=== PATIENT | female | born 1995 | race Hispanic/Latino ===

== ENCOUNTER 2024-10-05 12:07 | Emergency (ER) | payer MEDICAID ==
[~2024-10-05] VITALS: Ht 167.6 cm; Wt 127.0 kg
[2024-10-05 12:23] VITALS: PULSE 74; RESP 16; TEMP 98
[2024-10-05] MEDS ORDERED: NAPROXEN250 MG PO (13:03)
[2024-10-05] MEDS: KETOROLAC TROMETHAMINE 30 MG/ML VIAL IM STA (13:21)
[2024-10-05] MEDS: ACETAMINOPHEN 325 MG TAB PO ONE (13:22)
[2024-10-05] MEDS: DEXAMETHASONE 4 MG TAB PO STA (13:22)
[2024-10-05] MEDS: LIDOCAINE 4% PATCH TP STA (13:22)
[2024-10-05 14:16] VITALS: BP 125/66; PULSE 74; RESP 16; TEMP 98.4; O2SAT 97
== END 2024-10-05 14:19 | disposition home or self-care (01) ==
LOC: ER 12:11
DX: S33.5XXA Sprain of ligaments of lumbar spine, initial encounter (principal); Y93.H1 Activity, digging, shoveling and raking; Y92.096 Garden or yard of other non-institutional residence as the place of occurrence of the external cause; Z86.79 Personal history of other diseases of the circulatory system
CPT/HCPCS: 99283; J1885; J8540

== ENCOUNTER 2025-03-28 16:58 | Emergency (ER) | payer MEDICAID ==
[~2025-03-28] VITALS: Ht 167.6 cm; Wt 127.0 kg
[~2025-03-28 16:58] MED LIST: NAPROXEN250 MG PO
[2025-03-28 17:41] VITALS: PULSE 87; RESP 16; TEMP 97.9
[2025-03-28] MEDS ORDERED: TYLENOL325 MG PO (18:03)
[2025-03-28] MEDS ORDERED: IBUPROFEN600 MG PO (18:03)
[2025-03-28 18:35] VITALS: BP 137/75; PULSE 87; RESP 18; TEMP 97.8; O2SAT 99
== END 2025-03-28 18:42 | disposition home or self-care (01) ==
LOC: FSED 17:00
DX: S93.491A Sprain of other ligament of right ankle, initial encounter (principal); W18.39XA Other fall on same level, initial encounter; Y93.01 Activity, walking, marching and hiking; Y92.89 Other specified places as the place of occurrence of the external cause
CPT/HCPCS: 99283